=== PATIENT | female | born 1965 | race Caucasian/White ===

== ENCOUNTER 2016-05-03 12:38 | Emergency (ER) | payer BC ==
[~2016-05-03] VITALS: Ht 154.9 cm; Wt 72.6 kg
--- NOTE | ~2016-05-03 | EKG ---
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 YEN : 1965 Requested By: Pritesh Vega Order Number: [id number] MD: Adriel White Measurements Intervals [place] Rate: 93 P: 35 DC: 137 QRS: -19 QRSD: 82 T: 1 QT: 348 QTc: 433 Interpretive Statements Sinus rhythm Abnormal R-wave progression, late transition Left ventricular hypertrophy No previous ECG available for comparison Electronically Signed On 05-03-2016 17:07:27 [employer]ARING [employer] by Adriel White [email or web address] <ELECTRONICALLY SIGNED> By: Adriel White MD 05/03/16 1707 1239 [id number] Adriel White MD /DAVID
[2016-05-03 13:12] LABS: ABSOLUTE NEUTROPHILS 3.8 thou/uL (1.4-8.2); BASOPHILS 0.6 % (0.0-2.0); EOSINOPHILS 2.9 % (0.0-3.0); HEMATOCRIT 41.8 % (37.0-47.0); HEMOGLOBIN 14.1 gm/dL (12.0-15.0); LYMPHOCYTES 33.8 % (24.0-44.0); MCH 32.9 pg (26.0-34.0); MCHC 33.9 % (28.0-37.0); MCV 97.2 fL (80.0-100.0); MONOCYTES 8.2 % (1.0-8.0); PLATELET COUNT 242 thou/uL (150-400); POLYS 54.5 % (36.0-66.0); RDW 12.9 % (10.5-14.5)
[2016-05-03 13:14] LABS: MANUAL DIFF NO
[2016-05-03 13:20] LABS: ANION GAP 8 mmol/L (7-16); BUN 13 mg/dL (7-18); CALCIUM 9.2 mg/dL (8.5-10.1); CHLORIDE 103 mmol/L (98-107); CO2 28 mmol/L (21-32); CREATININE 0.8 mg/dL (0.6-1.3); GLUCOSE 94 mg/dL (70-99); SODIUM 139 mmol/L (136-145)
[2016-05-03] MEDS ORDERED: LISINOPRIL-HCT1 EACH PO (13:25)
[2016-05-03] MEDS ORDERED: PAROXETINE HCL40 MG PO (13:25)
[2016-05-03] MEDS ORDERED: ALPRAZOLAM XR2 MG PO (13:26)
[2016-05-03] MEDS ORDERED: BENTYL 20 MG TA20 M1 PO (13:27)
[2016-05-03 13:29] LABS: ALBUMIN 3.6 g/dL (3.4-5.0); ALKALINE PHOSPHATASE 87 U/L (46-116); SGOT 18 U/L (15-37); SGPT 32 U/L (30-65); TOTAL BILIRUBIN 0.3 mg/dL (<0.1-1.0); TOTAL PROTEIN 7.3 g/dL (6.4-8.2); TROPONIN-I < 0.04 ng/mL (<0.04-0.07)
[2016-05-03] MEDS ORDERED: ATIVAN1 MG PO (15:10)
[2016-05-03] MEDS ORDERED: PEPCID20 MG PO (15:12)
[2016-05-03 15:19] VITALS: BP 137/95
== END 2016-05-03 15:31 | disposition home or self-care (01) ==
LOC: ER 12:38
PROVIDERS: Physician Assistant
DX: R07.89 Other chest pain (principal); F41.9 Anxiety disorder, unspecified; R19.7 Diarrhea, unspecified; R05 Cough; I10 Essential (primary) hypertension; F10.99 Alcohol use, unspecified with unspecified alcohol-induced disorder

== ENCOUNTER 2016-09-21 02:40 | Inpatient (IN) | payer BC ==
[~2016-09-21] VITALS: Ht 180.3 cm; Wt 73.9 kg
[2016-09-21] VITALS (20 sets, daily range): BP systolic 87–139; BP diastolic 53–104
[~2016-09-21 02:40] MED LIST: ALPRAZOLAM XR2 MG PO; ATIVAN1 MG PO; BENTYL 20 MG TA20 M1 PO; LISINOPRIL-HCT1 EACH PO; PAROXETINE HCL40 MG PO; PEPCID20 MG PO
[2016-09-21 03:17] LABS: ABSOLUTE NEUTROPHILS 4.3 thou/uL (1.4-8.2); BASOPHILS 0.9 % (0.0-2.0); EOSINOPHILS 3.2 % (0.0-3.0); HEMATOCRIT 40.4 % (37.0-47.0); HEMOGLOBIN 13.9 gm/dL (12.0-15.0); LYMPHOCYTES 35.7 % (24.0-44.0); MCHC 34.4 g/dL (28.0-37.0); MCV 98.6 fL (80.0-100.0); MONOCYTES 6.5 % (1.0-8.0); POLYS 53.7 % (36.0-66.0); RDW 12.9 % (10.5-14.5); WBC 8.7 thou/uL (4.0-11.0)
[2016-09-21 03:19] LABS: AMP/METHAMP Negative (Negative); BARBITURATES Negative (Negative); BENZODIAZEPINES POSITIVE (Negative); COCAINE Negative (Negative); METHADONE Negative (Negative); OPIATES Negative (Negative); PCP Negative (Negative); THC Negative (Negative)
[2016-09-21 03:20] LABS: MANUAL DIFF NO
[2016-09-21 03:25] LABS: ANION GAP 9 mmol/L (7-16); BUN 7 mg/dL (7-18); CALCIUM 8.6 mg/dL (8.5-10.1); CHLORIDE 104 mmol/L (98-107); CO2 29 mmol/L (21-32); CREATININE 0.9 mg/dL (0.6-1.0); GLUCOSE 104 mg/dL (74-106); SODIUM 142 mmol/L (136-145)
[2016-09-21 03:29] LABS: ALBUMIN 3.7 g/dL (3.4-5.0); ALKALINE PHOSPHATASE 90 U/L (46-116); DIRECT BILIRUBIN < 0.1 mg/dL (<0.1-0.3); SALICYLATE < 2.8 mg/dL (2.8-20.0); SGOT 31 U/L (15-37); SGPT 35 U/L (30-65); TOTAL BILIRUBIN 0.1 mg/dL (<0.1-1.0)
[2016-09-21 03:43] LABS: ACETAMINOPHEN < 2 ug/mL (10-30)
[2016-09-21 03:56] LABS: PLATELET COUNT 238 thou/uL (150-400)
[2016-09-22] VITALS (16 sets, daily range): BP systolic 122–148; BP diastolic 68–99
[2016-09-22 04:42] LABS: ABSOLUTE NEUTROPHILS 3.4 thou/uL (1.4-8.2); BASOPHILS 0.4 % (0.0-2.0); EOSINOPHILS 3.3 % (0.0-3.0); HEMOGLOBIN 13.7 gm/dL (12.0-15.0); MCHC 34.3 g/dL (28.0-37.0); MONOCYTES 6.7 % (1.0-8.0); PLATELET COUNT 229 thou/uL (150-400); POLYS 53.6 % (36.0-66.0); RBC 4.05 mil/uL (4.20-5.00); RDW 13.5 % (10.5-14.5); WBC 6.4 thou/uL (4.0-11.0)
[2016-09-22 04:54] LABS: MANUAL DIFF NO
[2016-09-22 04:55] LABS: CALCIUM 8.3 mg/dL (8.5-10.1); CREATININE 0.7 mg/dL (0.6-1.0)
== END 2016-09-22 16:15 | DRG 918 ==
LOC: ER 02:40 → EROBS 03:49 → ICU 03:49
PROVIDERS: Emergency Medicine; Nurse Practitioner
DX: T42.4X2A Poisoning by benzodiazepines, intentional self-harm, initial encounter (principal); R45.851 Suicidal ideations; F10.20 Alcohol dependence, uncomplicated; I10 Essential (primary) hypertension; E87.6 Hypokalemia; F41.9 Anxiety disorder, unspecified; G93.89 Other specified disorders of brain; K58.9 Irritable bowel syndrome, unspecified; Y90.0 Blood alcohol level of less than 20 mg/100 ml; F32.9 Major depressive disorder, single episode, unspecified; Y92.89 Other specified places as the place of occurrence of the external cause; Z79.899 Other long term (current) drug therapy; Z91.5 Personal history of self-harm; Z87.891 Personal history of nicotine dependence; Z69.11 Encounter for mental health services for victim of spousal or partner abuse
CPT/HCPCS: 10078

== ENCOUNTER 2017-09-06 14:35 | Emergency (ER) | payer OTHER ==
[~2017-09-06] VITALS: Ht 152.4 cm; Wt 68.0 kg
== END 2017-09-06 16:46 | disposition home or self-care (01) ==
LOC: ER 14:35
DX: S60.222A Contusion of left hand, initial encounter (principal); I10 Essential (primary) hypertension; F41.9 Anxiety disorder, unspecified; F32.9 Major depressive disorder, single episode, unspecified; W01.0XXA Fall on same level from slipping, tripping and stumbling without subsequent striking against object, initial encounter; Y93.89 Activity, other specified; Y92.89 Other specified places as the place of occurrence of the external cause; Y99.8 Other external cause status